=== PATIENT | male | born 1960 ===

== ENCOUNTER 2023-10-28 07:17 | Outpatient (CLI) | payer OTHER ==
[2023-10-28] MEDS ORDERED: Iopamidol 300 61% 100 ML VIAL FS ONE (09:39)
== END 2023-10-28 07:18 | disposition home or self-care (01) ==
LOC: CSHCT 07:17
PROVIDERS: ATTEND Urology
DX: R97.20 Elevated prostate specific antigen [PSA] (principal); R81 Glycosuria; N40.0 Benign prostatic hyperplasia without lower urinary tract symptoms
CPT/HCPCS: 74178; 82565